=== PATIENT | female | born 1935 | race Caucasian/White ===

== ENCOUNTER 2021-09-17 09:48 | Outpatient (CLI) | payer MEDICARE, OTHER, SELFPAY ==
[2021-09-17 10:10] VITALS: BMI 23.9
--- NOTE | 2021-09-17 10:12 | NMCV_ITS ---
NM maya perf SPECT r/s* [id number] Coco Powers Age: 86 Gender: F : 1935 Exam Date: 09/17/2021 10:12 Ordering Phys: Cortes Charles Technologist: JUAN Teresa Exam Location: [facility] Indications: CHEST PAIN STRESS TEST Please see separate stress test report in [facility] for full findings IMAGE PROTOCOL Rest/Stress 1 Lexiscan Day Radiopharmaceutical Dose (mCi) Administration Site Administered by Rest: Tc-99m 10.7 IV JUAN Butterfield Sestamibi Stress:Tc-99m 32.5 IV JUAN Teresa Sestamiserg Rest: 17-Sep-2021 60 Discovery 630 Stress: 17-Sep-2021 30 Discovery 630 0.4mg Lexiscan. Images obtained in supine and prone position. SPECT RESULTS Technical Quality: Excellent Raw Data Analysis: Normal Image Corrections: No attenuation or motion correction applied Summed Stress Score: 2 Summed Rest Score: 1 Summed Difference Score: 1 PERFUSION FINDINGS SPECT images demonstrate homogeneous tracer distribution throughout the myocardium. FUNCTIONAL RESULTS (calculated via Gated SPECT) Stress Image LV EF (%): 90 Stress EDV (mL):61 TID: 1.17 Stress ESV (mL):6 Rest Image LV EF (%): 90 FUNCTIONAL FINDINGS: There is normal left ventricular systolic function. IMPRESSIONS Myocardial perfusion imaging is normal.TID ration is elevated which could be secondary left ventricle hypertrophy/subendocardial ischemia, EKG segment will be documented separately Gerardo Cowart MD (Electronically Signed) Final Date: 17 September 2021 19:25 S
--- NOTE | 2021-09-17 10:12 | ECG_ITS ---
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 The perfusion scan will be documented separately. DATA: Baseline heart rate was 82 beats per minute. Baseline blood pressure was 118/55 millimeters of mercury. Target heart rate was 136. Maximum heart rate achieved was 111. which was 81% of the predicted target heart rate. Maximum blood pressure was 130/58. Millimeters of mercury. The reason for ending the test was completion of the protocol. The patient did not experience any symptoms. ELECTROCARDIOGRAM: BASELINE: Sinus rhythm. Normal axis. Otherwise, no ST-T changes suggestive of ischemia noted. No arrhythmia noted. EXERCISE: After Lexiscan injection, no ST-T changes suggestive of ischemic noted. No arrhythmia noted. 1. EKG not suggestive of ischemia 2. Lexiscan injection unremarkable. 3. Perfusion scan will be documented separately. Electronically Signed On 09-22-2021 21:51:13 EGG SMELLER by RICK PEREZ [email or web address]
[2021-09-17 12:38] VITALS: BP 105/57; PULSE 61
== END 2021-09-17 09:49 | disposition home or self-care (01) ==
LOC: CDL 09:49
PROVIDERS: PCP Family Medicine; Visit Provider Family Medicine
DX: R07.9 Chest pain, unspecified (principal); R68.89 Other general symptoms and signs
CPT/HCPCS: 78452; 93017; A9500

== ENCOUNTER → 2023-03-15 13:06 | Outpatient (BNVA) | payer MEDICARE, OTHER, SELFPAY | PROVIDERS: PCP Family Medicine; Referring Provider Nurse Practitioner Family; Visit Provider Internal Medicine | DX: E04.1 Nontoxic single thyroid nodule (principal); K44.9 Diaphragmatic hernia without obstruction or gangrene | CPT/HCPCS: 99204 ==

== ENCOUNTER 2023-03-29 12:14 | Outpatient (CLI) | payer MEDICARE, OTHER, SELFPAY ==
--- NOTE | 2023-03-29 13:30 | US_ITS ---
WS: [id number] ULTRASOUND THYROID FNA CLINICAL INFORMATION: Thyroid Nodule TECHNIQUE: Ultrasound-guided FNA FINDINGS: The procedure including risks, benefits, and complications were discussed with the patient who agreed to proceed. Timeout was performed. Using sterile technique patient was prepped and draped in usual sterile fashion. After 1% lidocaine, using ultrasound guidance, a 25-gauge needle was advanc ed into the LEFT mid thyroid nodule. 4 passes were made with active aspiration. Pathology was present for slide preparation. No immediate complications. Patient remained in the ultrasound suite 10 minutes postprocedure with intermittent ultrasound to ens ure no hematoma. No hematoma 10 minutes postprocedure. US/US biopsy/FNA thyroid [id number] IMPRESSION: Uncomplicated ultrasound-guided thyroid FNA LEFT mid thyroid nodule
== END 2023-03-29 12:15 | disposition home or self-care (01) ==
PROVIDERS: PCP Family Medicine; Visit Provider Internal Medicine
DX: E04.1 Nontoxic single thyroid nodule (principal)
CPT/HCPCS: 10005; 88173

== ENCOUNTER 2023-08-17 14:09 | Outpatient (CLI) | payer MEDICARE, OTHER, SELFPAY ==
--- NOTE | 2023-08-17 14:15 | USCV_ITS ---
Coco Powers Age: 88 Gender: F : 1935 Exam Date: 08/17/2023 14:26 Ordering Phys: Cortes Charles XX Technologist: NIRAV Exam Location: [facility] [place] Indication: SHORTNESS OF BREATH BP: 89 / 50 HR: 71 Rhythm: Sinus Technical Quality: Adequate MEASUREMENTS (Male / Female) Normal Values 2D ECHO LVOT Diameter 1.9 cm LV Ejection Fraction MOD 2C 55.0 % LV Ejection Fraction 2C AL 55.2 % LA Diameter 2.5 cm LA Width 3.9 cm LA Height 4.1 cm RA Width 3.1 cm RA Height 4.8 cm Aorta at Sinotubular Diameter 1.9 cm IVC Diameter 1.3 cm M-MODE Aortic Annulus Diameter 2.1 cm LA Ao Ratio MM 1.2 MV E Point Septal Separation 0.4 cm DOPPLER AV Peak Velocity 141.0 cm/s LVOT Peak Velocity 95.0 cm/s AV Area Cont Eq vti 2.1 cm squared AV Area Cont Eq pk 1.9 cm squared MV Peak Velocity 112.0 cm/s MV Area PHT 4.9 cm squared Mitral E to A Ratio 0.8 MV E' Velocity 46.0 cm/s Mitral E to MV E' Ratio 11.1 Mitral E to LV E' Lateral Ratio 11.6 Mitral E to LV E' Septal Ratio 10.9 TR Peak Velocity 237.8 cm/s TR Peak Gradient 22.6 mmHg TR Mean Velocity 172.1 cm/s TR Mean Gradient 12.0 mmHg TR Velocity Time Integral 61.7 cm TV Peak E Velocity 53.0 cm/s Right Atrial Pressure 3.0 mmHg Pulmonary Artery Systolic Pressu 25.6 mmHg PV Peak Velocity 96.0 cm/s RV Acceleration Time 0.1 s RV Ejection Time 0.3 s RV AcT/ET 0.4 FINDINGS Left Ventricle Normal left ventricular size and systolic function, EF 61 %. No regional wall motion abnormalities. Grade I/IV diastolic dysfunction (abnormal relaxation filling pattern), normal to mildly elevated filling pressures. Right Ventricle Normal right ventricular size and systolic function. Right Atrium Mildly increased right atrial size. Left Atrium Mildly increased left atrial size. Mitral Valve Mild mitral annular calcification. Aortic Valve Thickened aortic valve. Tricuspid Valve Moderate eccentric tricuspid regurgitation Pulmonic Valve No gross abnormalities noted Pericardium Normal pericardium without effusion. Aorta Normal ascending aorta dimension. IVC The inferior vena cava appears normal. CONCLUSIONS Normal left ventricular size and systolic function, EF 61 %. No regional wall motion abnormalities. Grade I/IV diastolic dysfunction (abnormal relaxation filling pattern), normal to mildly elevated filling pressures. Mild biatrial enlargement. Mild mitral annular calcification. Moderate eccentric tricuspid regurgitation. Estimated pulmonary artery peak systolic pressure 26 mmHg There is no pericardial effusion. There are no intracardiac masses. No similar previous studies are available for comparison Dr Layla Qureshi MD [facility] (Electronically Signed) Final Date: 19 August 2023 06:43 S
== END 2023-08-17 14:10 | disposition home or self-care (01) ==
LOC: RAD 14:09
PROVIDERS: PCP Family Medicine; Visit Provider Family Medicine
DX: R06.09 Other forms of dyspnea (principal); R55 Syncope and collapse; I51.89 Other ill-defined heart diseases; I51.7 Cardiomegaly; I34.81 Nonrheumatic mitral (valve) annulus calcification; I07.1 Rheumatic tricuspid insufficiency
CPT/HCPCS: 93306

== ENCOUNTER 2023-09-08 14:27 | Outpatient (CLI) | payer MEDICARE, OTHER, SELFPAY ==
--- NOTE | 2023-09-08 14:45 | US_ITS ---
WS: [id number] THYROID ULTRASOUND HISTORY: E04.1 - Nontoxic single thyroid nodule COMPARISON: 03/29/2023 prior biopsy. Right lobe: 1.0 cm x 0.9 cm x 1.8 cm (w x ap x l). Volume: 0.9 cm3. Small atrophied thyroid. There are a few small colloid cysts. No mass or echogenic foci. Left lobe: 1.7 cm x 1.4 cm x 4.1 cm (w x ap x l). Volume: 5.0 cm3. Hypoechoic predominantly solid mass with a few scattered cystic areas in the mid to lower thyroid. Th is nodule has been previously biopsied. Mass measures 1.1 x 1.4 x 2.6 cm. No increase in size since t he prior biopsy. Mass is measuring just slightly smaller. There is increased peripheral vascularity. No echogenic foci. Smooth contour. Isthmus: 0.2 cm. IMPRESSION: 1. TI-RADS 3; nodule in the mid LEFT thyroid. Only mildly suspicious but prior biopsy has already bee n performed. 2. Mild atrophy RIGHT thyroid. No suspicious nodules.
== END 2023-09-08 14:28 | disposition home or self-care (01) ==
LOC: RAD 14:28
PROVIDERS: PCP Family Medicine; Visit Provider Internal Medicine
DX: E04.1 Nontoxic single thyroid nodule (principal)
CPT/HCPCS: 76536

== ENCOUNTER → 2023-09-19 10:59 | Outpatient (BNVA) | payer MEDICARE, OTHER, SELFPAY | PROVIDERS: PCP Family Medicine; Visit Provider Internal Medicine | DX: E04.1 Nontoxic single thyroid nodule (principal); K44.9 Diaphragmatic hernia without obstruction or gangrene | CPT/HCPCS: 99213 ==

== ENCOUNTER → 2025-03-21 13:57 | Outpatient (BNVA) | payer MEDICARE, OTHER, SELFPAY | PROVIDERS: PCP Family Medicine; Visit Provider Orthopaedic Surgery | DX: S32.10XA Unspecified fracture of sacrum, initial encounter for closed fracture (principal); S32.2XXA Fracture of coccyx, initial encounter for closed fracture; X58.XXXA Exposure to other specified factors, initial encounter | CPT/HCPCS: 72220; 99203 ==

== ENCOUNTER → 2025-06-07 14:22 | Outpatient (BNVA) | payer MEDICARE, OTHER, SELFPAY | PROVIDERS: PCP Family Medicine; Visit Provider Nurse Practitioner Family | DX: L23.9 Allergic contact dermatitis, unspecified cause (principal); D22.5 Melanocytic nevi of trunk; L57.8 Other skin changes due to chronic exposure to nonionizing radiation; L81.4 Other melanin hyperpigmentation; L82.1 Other seborrheic keratosis; L82.0 Inflamed seborrheic keratosis; L29.89 Other pruritus; R20.8 Other disturbances of skin sensation; Z78.9 Other specified health status; R58 Hemorrhage, not elsewhere classified | CPT/HCPCS: 17110; 99203 ==

== ENCOUNTER → 2025-09-18 14:02 | Outpatient (BNVA) | payer MEDICARE, OTHER, SELFPAY | PROVIDERS: PCP Family Medicine; Visit Provider Nurse Practitioner Family | DX: L23.9 Allergic contact dermatitis, unspecified cause (principal); L91.8 Other hypertrophic disorders of the skin; Z78.9 Other specified health status | CPT/HCPCS: 17110; 99213 ==